=== PATIENT | female | born 1990 | race Caucasian/White ===

== ENCOUNTER 2019-04-06 20:23 | Outpatient (REF) | payer MEDICAID, SELFPAY ==
[2019-04-06 21:38] LABS: HCT 37.1 % (36.0-46.0); HGB 12.2 g/dL (12.0-15.5); Mean Corp. HGB Concentration 32.9 g/dL (32.0-36.0); Mean Corpuscular Hemoglobin 26.9 pg (27.0-33.0); Mean Corpuscular Volume 81.9 fL (80-95); Mean Platelet Volume 8.4 fL (8.0-11.0); Platelet Count 427 x1000/uL (130-400); RBC 4.53 m/cumm (4.00-5.20); RBC Distribution Width 16.3 % (11.7-14.6); White Blood Cell Count 6.77 k/cumm (4.4-10.8)
[2019-04-06 22:00] LABS: Hemoglobin A1C 6.1 % (4.5-6.2)
[2019-04-06 22:04] LABS: ALT 24 U/L (14-59); AST 21 U/L (15-37); Albumin 4.4 g/dL (3.4-5.0); Alkaline Phosphatase 80 U/L (46-116); BUN 11 mg/dL (7-18); Bilirubin, Total 0.3 mg/dL (0.2-1.0); CREATININE 0.97 mg/dL (0.55-1.02); Calcium 9.6 mg/dL (8.5-10.1); Calculated LDL 119 mg/dL; Chloride 101 mmol/L (98-107); Cholesterol 204 mg/dL (<200); Glucose 115 mg/dL (74-106); HDL Cholesterol 34 mg/dL (40-60); Potassium 3.9 mmol/L (3.5-5.1); Sodium 139 mmol/L (136-145); TSH 24.51 uIU/mL (0.36-3.74); Total Protein 8.4 g/dL (6.4-8.2); Triglyceride 258 mg/dL (<150)
== END 2019-04-06 20:43 ==
LOC: NCHCN 20:23
PROVIDERS: PCP Nurse Practitioner Family; Visit Provider Nurse Practitioner Family
DX: E03.9 Hypothyroidism, unspecified (principal); R53.83 Other fatigue; N92.0 Excessive and frequent menstruation with regular cycle; Z13.220 Encounter for screening for lipoid disorders; Z13.1 Encounter for screening for diabetes mellitus
CPT/HCPCS: 80053; 80061; 85027; 83036; 84443

== ENCOUNTER 2020-09-11 14:50 | Outpatient (REF) | payer MEDICAID, SELFPAY ==
[2020-09-11 21:43] LABS: Hemoglobin A1C 5.9 % (<5.7)
[2020-09-11 21:49] LABS: Calculated LDL 115 mg/dL (<100); Cholesterol 189 mg/dL (<200); HDL Cholesterol 34 mg/dL (40-60); TSH 0.21 uIU/mL (0.36-3.74); Triglyceride 203 mg/dL (<150)
== END 2020-09-11 14:51 | disposition home or self-care (01) ==
LOC: NCHCN 14:50
PROVIDERS: PCP Nurse Practitioner Family; Visit Provider Nurse Practitioner Family
DX: E78.6 Lipoprotein deficiency (principal); R73.03 Prediabetes; E03.9 Hypothyroidism, unspecified
CPT/HCPCS: 80061; 83036; 84443

== ENCOUNTER 2021-08-01 18:22 | Outpatient (REF) | payer MEDICAID, SELFPAY ==
[2021-08-01 17:12] LABS: Hemoglobin A1C 5.9 % (<5.7)
[2021-08-01 18:45] LABS: ALT 58 U/L (14-59); AST 51 U/L (15-37); Albumin 4.4 g/dL (3.4-5.0); Alkaline Phosphatase 82 U/L (46-116); Anion Gap 10.8 mmol/L (3-11); BUN 14 mg/dL (7-18); Bilirubin, Total 0.3 mg/dL (0.2-1.0); CO2 26.2 mmol/L (21.0-32.0); Calcium 9.9 mg/dL (8.5-10.1); Chloride 100 mmol/L (98-107); Glucose 113 mg/dL (74-106); Potassium 4.2 mmol/L (3.5-5.1); Sodium 137 mmol/L (136-145); TSH 2.38 uIU/mL (0.36-3.74); Total Protein 8.8 g/dL (6.4-8.2)
== END 2021-08-01 18:23 | disposition home or self-care (01) ==
LOC: NCHCN 18:22
PROVIDERS: PCP Nurse Practitioner Family; Visit Provider Nurse Practitioner Family
DX: E03.9 Hypothyroidism, unspecified (principal); R73.03 Prediabetes; E66.9 Obesity, unspecified
CPT/HCPCS: 80053; 83036; 84443

== ENCOUNTER 2022-09-10 15:53 | Outpatient (REF) | payer MEDICAID, SELFPAY ==
[2022-09-10 21:19] LABS: HCT 37.4 % (36.0-46.0); HGB 12.5 g/dL (11.2-15.7); MCH 29.9 pg (27.0-33.0); MCHC 33.4 % (32.0-36.0); MCV 90 fL (80-95); MPV 8.7 fL (8.0-11.0); Platelet Count 415 10^3/uL (130-400); RBC 4.18 10^6/uL (3.93-5.22); RDW 13.1 % (11.7-14.6); WBC 7.83 10^3/uL (4.4-10.8)
[2022-09-10 21:27] LABS: ALT 26 U/L (14-59); AST 27 U/L (15-37); Albumin 3.2 g/dL (3.4-5.0); Alkaline Phosphatase 136 U/L (46-116); Anion Gap 7.3 mmol/L (3-11); BUN 8 mg/dL (7-18); Bilirubin, Total 0.2 mg/dL (0.2-1.0); CO2 27.7 mmol/L (21.0-32.0); CREATININE 0.9 mg/dL (0.55-1.02); Calcium 8.6 mg/dL (8.5-10.1); Chloride 105 mmol/L (98-107); Estimated GFR 87.65 (mL/min/1.73m2); Glucose 99 mg/dL (74-106); Sodium 140 mmol/L (136-145); TSH 2.85 uIU/mL (0.36-3.74); Total Protein 7.2 g/dL (6.4-8.2); Uric Acid 5.1 mg/dL (2.6-6.0)
== END 2022-09-10 15:54 | disposition home or self-care (01) ==
LOC: NCHCN 15:53
PROVIDERS: PCP Nurse Practitioner Family; Visit Provider Family Medicine
DX: O11.9 Pre-existing hypertension with pre-eclampsia, unspecified trimester (principal); Z3A.00 Weeks of gestation of pregnancy not specified; E03.9 Hypothyroidism, unspecified
CPT/HCPCS: 80053; 85027; 84443; 84550